=== PATIENT | female | born 1950 | race Caucasian/White ===

== ENCOUNTER 2017-07-04 19:57 | Inpatient (IN) ==
[2017-07-04] MEDS ORDERED: ASPIRIN PO STA (20:16)
[2017-07-04 20:23] LABS: MANUAL DIFF NEEDED? NO
[2017-07-04 20:24] LABS: BASO% 0.5 % (0.0-0.8); EOS# 0.35 X1000 (0.0-0.7); EOS% 4.1 % (0.0-10.0); HEMATOCRIT 33.7 % (37.0-47.0); HEMOGLOBIN 10.9 g/dL (12.0-16.0); IMM GRAN# 0.03 X1000 (0.0-0.04); IMM GRAN% 0.3 % (0.0-0.5); LYMPH# 2.88 X1000 (1.2-3.4); LYMPH% 33.4 % (20.5-51.1); MCH 28.6 PG (27-31); MCHC 32.3 g/dL (33-37); MCV 88.5 FL (81-99); MONO# 0.73 X1000 (0.11-0.59); MONO% 8.5 % (1.7-9.3); MPV 10.7 FL (7.4-10.4); NEUT% 53.2 % (42.2-75.2); PLT 285 X1000 (130-400); RBC 3.81 XMIL (4.2-5.4)
--- NOTE | 2017-07-04 20:29 | EKG Report ---
Test Performed on : 07/04/2017 8:13:40 PM Test Reason : CHEST PAIN Blood Pressure : / mmHG Vent. Rate : 079 BPM Atrial Rate : 079 BPM P-R Int : 172 ms QRS Dur : 090 ms QT Int : 410 ms P-R-T Axes : 056 -35 032 degrees QTc Int : 470 ms Sinus rhythm. with occasional premature ventricular complexes. Left axis deviation Nonspecific ST and T wave abnormality Prolonged QT Abnormal ECG No previous ECGs available Unconfirmed Result
[2017-07-04 21:00] LABS: INR 0.83 (0.86-1.15); PROTIME 12.1 Seconds (12.1-15.5)
[2017-07-04 21:01] LABS: FREE T4 0.84 ng/dL (0.93-1.70); PTT PL 34.8 Seconds (22.6-43.9)
--- NOTE | 2017-07-04 21:02 | Diag Imaging Result Doc PS360 ---
EXAM: CHEST-2 VIEWS INDICATION: CP TECHNIQUE: 2 views COMPARISON: None. FINDINGS: There are a few scattered calcified granulomata bilaterally. The lungs are grossly clear, otherwise. There is no discrete pleural fluid collection or pneumothorax. The cardiomediastinal silhouette and central vasculature are grossly unremarkable. IMPRESSION: No evidence of acute pathology by plain radiograph. Electronically signed by Gio Rolle 07/04/2017 8:59 PM
[2017-07-04 21:31] LABS: SODIUM 139 mmol/L (136-145)
[2017-07-04 21:32] LABS: AGAP 15; BUN 16 mg/dL (8-22); CHLORIDE 99 mmol/L (98-107); COSMO 284; POTASSIUM 3.4 mmol/L (3.5-5.1); TCO2 26 mmol/L (25-35)
[2017-07-04 21:33] LABS: ALBUMIN 3.9 g/dL (3.5-5.0); ALKALINE PHOSPHATASE 138 U/L (32-104); CALCIUM 9.2 mg/dL (8.8-10.2); CK PROFILE 62 U/L (24-173); TOTAL PROTEIN 6.9 g/dL (6.3-8.3)
[2017-07-04 21:35] LABS: GOT 18 U/L (10-30); GPT 10 U/L (10-36)
[2017-07-04 21:42] LABS: MAGNESIUM 1.8 mg/dL (1.5-2.7)
[2017-07-04] MEDS ORDERED: PLAVIX PO ONE (22:34)
[2017-07-04] MEDS ORDERED: CRESTOR PO ONE (22:34)
--- NOTE | 2017-07-04 22:59 | EKG Report ---
Test Performed on : 07/04/2017 10:24:01 PM Test Reason : second set Blood Pressure : / mmHG Vent. Rate : 080 BPM Atrial Rate : 080 BPM P-R Int : 174 ms QRS Dur : 090 ms QT Int : 420 ms P-R-T Axes : 059 -37 023 degrees QTc Int : 484 ms Sinus rhythm. with premature atrial complexes. Left axis deviation Low voltage QRS Abnormal ECG When compared with ECG of 04-JUL-2017 20:13, (Unconfirmed) premature ventricular complexes. are no longer present premature atrial complexes. are now present Unconfirmed Result
--- NOTE | 2017-07-04 23:34 | PROVIDER DOCUMENTATION ---
This chart was entered by Lynn Rodrigez Scribe, acting as scribe for Darion Jacobson DO. HPI-Chest Pain - General Chief Complaint: Chest Pain Stated Complaint: PRESSURE IN CHEST/HEART PT Time Seen by Provider: 07/04/17 20:18 Source: patient Allergies/Adverse Reactions: Patient Allergies Allergy/AdvReac Type Severity Reaction Status Date / Time Penicillins Allergy RASH Verified 07/04/17 20:18 morphine AdvReac NAUSEA Verified 07/04/17 20:18 Home Medications: Home Medication List Medication Instructions Recorded Confirmed Last Taken Type Clopidogrel Bisulfate [Plavix] 75 mg PO DAILY 07/04/17 07/04/17 Unknown History Duloxetine [Cymbalta] 60 mg PO DAILY 07/04/17 07/04/17 Unknown History Duloxetine [Cymbalta] 90 mg PO DAILY 07/04/17 07/04/17 Unknown History ENALApril [Vasotec] 20 mg PO DAILY 07/04/17 07/04/17 Unknown History Ezetimibe [Zetia] 10 mg PO 07/04/17 Unknown History Fluticasone 50 Mcg Nasal [place] 1 spray MARGARET DAILY 07/04/17 07/04/17 Unknown History [Flonase] Gabapentin 300 mg PO TID 07/04/17 07/04/17 Unknown History Hydrochlorothiazide 50 mg PO 07/04/17 Unknown History Isosorbide Mononitrate E.r. [Imdur] 30 mg PO DAILY 07/04/17 07/04/17 Unknown History Metformin E.r. [Glucophage Xr] 500 mg PO BID CC 07/04/17 07/04/17 Unknown History Montelukast Sodium [Singulair] 10 mg PO 07/04/17 Unknown History ROSUVAstatin [Crestor] 10 mg PO DAILY 07/04/17 07/04/17 Unknown History Ranolazine [Ranexa] 500 mg PO 07/04/17 Unknown History Trazodone [Desyrel] 150 mg PO QHS 07/04/17 07/04/17 Unknown History - History of Present Illness-CP Nature of Presenting Problem: pt complains of substernal chest pain no radiation onset 1900 states 5/10 pain, also complains of mild shortness of breath, cardiac hx 2 prior [place], HTN, CAD, DM Location: reports: substernal Chest Pain Radiation: reports: no radiation Quality of Pain: reports: pressure Severity in ED: moderate Onset/Duration: 1-3 hours ago (1900) Timing: still present Context/Activities at Onset: reports: none Modifying Factors: improves with: nothing Associated Symptoms: reports: shortness of breath Nitro Today/Relief: no nitro taken today Aspirin Treatment Today: no aspirin today (states unable to take asa) Prior Chest Pain/Cardiac Workup: reports: heart attack (x2) Similar Symptoms Previously?: Yes Recently Seen Here or By Another Healthcare Provider: No Review of Systems - Adult - REVIEW OF SYSTEMS - ADULT Constitutional: denies: chills, fever Eyes: denies: blurred vision, double vision Ears, Nose, Mouth & Throat: reports: no symptoms reported Cardiovascular: reports: chest pain. denies: edema, palpitations, syncope Respiratory: reports: dyspnea on exertion, shortness of breath. denies: cough Gastrointestinal: reports: nausea. denies: abdominal pain, vomiting Genitourinary: reports: no symptoms reported Musculoskeletal: denies: back pain, neck pain Integumentary: reports: no symptoms reported Neurological: denies: dizziness/vertigo, headache/migraines, syncope Psychiatric: reports: no symptoms reported Endocrine: reports: no symptoms reported Hematologic/Lymphatic: reports: no symptoms reported Allergic/Immunologic: reports: no symptoms reported All Other Systems: Reviewed and Negative Past History - Adult - PAST MEDICAL HISTORY-ADULT Review of Records: reports: Old Records Reviewed, Nursing Assessment Review, Medications Reviewed, Social history reviewed & non-contributory. Major Childhood Illnesses: reports: denies history Cardiovascular: reports: cardiac disease, CAD, HTN, [place] Respiratory: reports: denies history Gastrointestinal: reports: denies history Obstetrical/Gynecological: reports: denies history Genitourinary: reports: denies history Musculoskeletal: reports: denies history Neurological: reports: denies history Endocrine/Immune: reports: denies history, Diabetes Other Conditions: reports: denies history - IMMUNIZATION STATUS Childhood Immunizations: See Nurse Assessment Flu Vaccine: See Nurse Assessment - FAMILY HISTORY Family History: reviewed, not pertinent Physical Exam-General - PHYSICAL EXAM-ADULT Initial Vital Signs Reviewed: Yes - CONSTITUTIONAL General Appearance: appears well, alert, no apparent distress - EYES Eyes: PERRL/EOMI - HEAD, EARS, NOSE, MOUTH & THROAT HENMT: normocephalic/atraumatic, moist mucous membranes, normal ENT inspection, TMs normal, pharynx normal - NECK Neck: non-tender, full range of motion, supple, normal inspection - RESPIRATORY Respiratory: chest non-tender, lungs clear, normal breath sounds, no pleuratic chest pain, no respiratory distress, no accessory muscle use - CARDIOVASCULAR Cardiovascular: normal peripheral pulses, regular rate, rhythm, no edema - GASTROINTESTINAL (ABDOMEN) Abdominal Exam: normal bowel sounds, non tender, soft - LYMPHATIC Lymphatic: no adenopathy - MUSCULOSKELETAL Back Exam: normal inspection, no CVA tenderness, no vertebral tenderness Extremity: normal range of motion, non-tender, normal gait, normal inspection, no pedal edema, no calf tenderness, normal capillary refill - SKIN Integumentary: normal color, normal turgor, warm/dry - NEUROLOGIC Neurologic: grossly normal - PSYCHIATRIC Psych/Mental Status: normal mood/affect Progress - PLAN OF CARE/RESULTS Progress/Plan/Lab Results: Vital Signs - 8 hr 07/04/17 20:05 07/04/17 20:19 07/04/17 21:10 Temperature 98.5 F Pulse Rate 60 65 77 Respiratory Rate 18 14 20 Blood Pressure 168/072 123/62 111/73 O2 Sat by Pulse Oximetry 99 98 07/04/17 21:21 07/04/17 21:40 07/04/17 22:14 Temperature Pulse Rate 80 79 78 Respiratory Rate 18 24 22 Blood Pressure 122/63 97/71 103/53 O2 Sat by Pulse Oximetry 98 98 96 07/04/17 22:26 07/04/17 22:54 07/04/17 23:03 Temperature Pulse Rate 84 73 75 Respiratory Rate 14 16 20 Blood Pressure 128/92 112/70 97/50 O2 Sat by Pulse Oximetry 97 98 97 07/04/17 23:21 Temperature Pulse Rate 75 Respiratory Rate 19 Blood Pressure 89/48 O2 Sat by Pulse Oximetry 98 Laboratory Results - last 24 hr 07/04/17 07/04/17 07/04/17 20:09 20:09 20:09 WBC RBC Hgb Hct MCV MCH MCHC RDW Std Deviation Plt Count MPV Immature Gran % (Auto) Neut % (Auto) Lymph % (Auto) [place] % (Auto) Eos % (Auto) Baso % (Auto) Immature Gran # (Auto) Neut # (Auto) Lymph # (Auto) [place] # (Auto) Eos # (Auto) Baso # (Auto) PT INR APTT (Factor Assay) D-Dimer Sodium 139 Potassium 3.4 L Chloride 99 Carbon Dioxide 26 Anion Gap 15 BUN 16 Creatinine 1.2 H BUN/Creatinine Ratio 13 Glucose 193 H POC Glucose Calculated Osmolality 284 Calcium 9.2 Phosphorus Magnesium 1.8 Total Bilirubin 0.20 AST 18 ALT 10 Alkaline Phosphatase 138 H Creatine Kinase 62 Troponin T < 0.010 Gdo-Q-Ivspzwfluls Pept 49 Total Protein 6.9 Albumin 3.9 Globulin 3.0 Albumin/Globulin Ratio 1.0 TSH Free T4 07/04/17 07/04/17 07/04/17 20:09 20:09 20:09 WBC 8.63 RBC 3.81 L Hgb 10.9 L Hct 33.7 L MCV 88.5 MCH 28.6 MCHC 32.3 L RDW Std Deviation 14.5 Plt Count 285 MPV 10.7 H Immature Gran % (Auto) 0.3 Neut % (Auto) 53.2 Lymph % (Auto) 33.4 [place] % (Auto) 8.5 Eos % (Auto) 4.1 Baso % (Auto) 0.5 Immature Gran # (Auto) 0.03 Neut # (Auto) 4.60 Lymph # (Auto) 2.88 [place] # (Auto) 0.73 H Eos # (Auto) 0.35 Baso # (Auto) 0.04 PT 12.1 INR 0.83 L APTT (Factor Assay) 34.8 D-Dimer 0.38 Sodium Potassium Chloride Carbon Dioxide Anion Gap BUN Creatinine BUN/Creatinine Ratio Glucose POC Glucose Calculated Osmolality Calcium Phosphorus 3.8 Magnesium Total Bilirubin AST ALT Alkaline Phosphatase Creatine Kinase Troponin T Nvy-N-Epyozkoffcw Pept Total Protein Albumin Globulin Albumin/Globulin Ratio TSH Free T4 07/04/17 07/04/17 07/04/17 20:09 21:06 22:30 WBC RBC Hgb Hct MCV MCH MCHC RDW Std Deviation Plt Count MPV Immature Gran % (Auto) Neut % (Auto) Lymph % (Auto) [place] % (Auto) Eos % (Auto) Baso % (Auto) Immature Gran # (Auto) Neut # (Auto) Lymph # (Auto) [place] # (Auto) Eos # (Auto) Baso # (Auto) PT INR APTT (Factor Assay) D-Dimer Sodium Potassium Chloride Carbon Dioxide Anion Gap BUN Creatinine BUN/Creatinine Ratio Glucose POC Glucose 144 H Calculated Osmolality Calcium Phosphorus Magnesium Total Bilirubin AST ALT Alkaline Phosphatase Creatine Kinase 65 Troponin T Eml-I-Bccqrqfzrjf Pept Total Protein Albumin Globulin Albumin/Globulin Ratio TSH 5.67 H Free T4 0.84 L 07/04/17 22:30 WBC RBC Hgb Hct MCV MCH MCHC RDW Std Deviation Plt Count MPV Immature Gran % (Auto) Neut % (Auto) Lymph % (Auto) [place] % (Auto) Eos % (Auto) Baso % (Auto) Immature Gran # (Auto) Neut # (Auto) Lymph # (Auto) [place] # (Auto) Eos # (Auto) Baso # (Auto) PT INR APTT (Factor Assay) D-Dimer Sodium Potassium Chloride Carbon Dioxide Anion Gap BUN Creatinine BUN/Creatinine Ratio Glucose POC Glucose Calculated Osmolality Calcium Phosphorus Magnesium Total Bilirubin AST ALT Alkaline Phosphatase Creatine Kinase Troponin T < 0.010 Jfj-J-Qqohffrqdjd Pept Total Protein Albumin Globulin Albumin/Globulin Ratio TSH Free T4 Orders Category Date Time Status Admit - [facility] Routine AdmDCTranf 07/04/17 22:09 Ordered Cardiac Monitoring DIRECTED Care 07/04/17 20:16 Active Oxygen Therapy- ED Nursing DIRECTED Care 07/04/17 20:16 Active Saline Loc NOW Care 07/04/17 20:16 Active 2 GM SODIUM Diet Diet 07/04/17 22:24 Active Diabetic Diet Diet 07/04/17 22:24 Active Heart Healthy Diet Diet 07/04/17 22:23 Completed CHEST-2 VIEWS [RAD] Stat Exams 07/04/17 20:16 Completed CBC WITH ELECTRONIC DIFF [HEME] Stat Lab 07/04/17 20:09 Completed CK PROFILE [SP CHEM] Stat Lab 07/04/17 20:09 Completed CK PROFILE [SP CHEM] Stat Lab 07/04/17 22:30 Completed COMPREHENSIVE METABOLIC PANEL [CHEM] Stat Lab 07/04/17 20:09 [address] D-DIMER [address] [COAG] Stat Lab 07/04/17 20:09 Completed FREE T4 Stat Lab 07/04/17 20:09 Completed MAGNESIUM [CHEM] Stat Lab 07/04/17 20:09 Completed PRO B-NATRIURETIC PEPTIDE Stat Lab 07/04/17 20:09 Completed [address]IME WITH INR PL [COAG] Stat Lab 07/04/17 20:[address] [COAG] Stat Lab 07/04/17 20:09 Completed TROPONIN T Stat Lab 07/04/17 20:09 Completed TROPONIN T Stat Lab 07/04/17 22:30 Completed TROPONIN T Timed Lab 07/05/17 07:00 Ordered TSH Stat Lab 07/04/17 20:09 Completed phos [PHOSPHORUS] [CHEM] Stat Lab 07/04/17 20:09 Completed Aspirin Med 07/04/17 20:16 Discontinued 325 mg PO STAT STA Clopidogrel [Plavix] Med 07/04/17 22:34 Discontinued 75 mg PO NOW ONE ROSUVAstatin [Crestor] Med 07/04/17 22:34 Discontinued 10 mg PO NOW ONE EKG [EKG] Stat Ther 07/04/17 20:16 Draft EKG [EKG] Stat Ther 07/04/17 22:19 Draft Transfer/Admit Order [TRANSFER] Routine Transfer 07/04/17 22:27 Ordered SPOKE WITH HE HAS ACCEPTED THE ADMISSION Result Diagrams: 07/04/17 20:09 07/04/17 20:09 - EKG 1 Time of EKG reading by physician:: 20:13 EKG Read and Signed by:: Moshe Banda EKG Interpretation (*Must complete 3 of following elements*): Abnormal Rate: 79 [place]: left QRS: PVC's ST Wave: non-specific ST changes Comments: sinus rythm with occasional PVCs, LAD, non specific st-t wave abnormalities 2 Time of EKG reading by physician:: 22:24 EKG Read and Signed by:: Moshe Banda EKG Interpretation (*Must complete 3 of following elements*): Abnormal Rate: 80 Rhythm: sinus with PAC [place]: left RI Interval: normal ST Wave: normal Comments: lad, low voltage qrs Departure - Departure Date of Disposition Decision: 07/04/17 Time of Disposition Decision: 23:00 DIAGNOSIS: Chest pain Qualifiers: Chest pain type: chest pain due to myocardial ischemia Ischemic chest pain type : unstable angina pectoris Qualified Code(s): I20.0 - Unstable angina Disposition: ADMITTED INPATIENT 09 Certified Medical Emergency: Emergent Condition: Critical - Critical Care Note This patient required my direct & personal management of CC.: No Attestation - Physician/ MARCIA Attestation Patient care was provided by Advanced Practice Provider:: No The physician spent face to face time with patient:: Yes Advanced Practice Provider documentation review:: Supervising physician onsite and consulted in the evaluation and care of this patient. The physician did have a face to face encounter with the patient. This chart was documented by the indicated scribe, (Lynn Rodrigez Scribe) and accurately reflects the services I performed and decisions made by me, Darion Jacobson DO, as attested by the provider's signature.
[2017-07-05] MEDS ORDERED: NEURONTIN PO ONE (01:14)
[2017-07-05] MEDS ORDERED: TYLENOL PO PRN (01:16)
[2017-07-05] MEDS ORDERED: CRESTOR PO ONE ×2 (02:30)
[2017-07-05 07:28] VITALS: BP 107/74
[2017-07-05] MEDS: NEURONTIN PO SCH ×2 (08:24→12:15)
--- NOTE | 2017-07-05 16:58 | HISTORY AND PHYSICAL ---
CHIEF COMPLAINT: Chest pressure. HISTORY OF PRESENT ILLNESS: This is a 66-year-old female with a history of CAD having 2 MIs in the past, hypertension and diabetes mellitus. She presented to the emergency room complaining of substernal chest pain that started a few hours prior to coming to the emergency room. She rated it as a 5/10. She had no radiation, no exacerbating or alleviating symptoms. She did have a shortness of breath to accompany. She has had an CO in the past and stated that this does not feel like that type of pain. EKG on arrival revealed a sinus rhythm with occasional PVCs, a rate of [address]-T wave abnormalities. Repeat EKG about 2 hours later revealed sinus rhythm with PACs rate of 80. Troponins were negative on multiple occasions. She was given aspirin, Plavix and Crestor in the emergency room and admitted for further evaluation and treatment. PAST MEDICAL HISTORY: CAD status post CO x2, hypertension, diabetes mellitus, high cholesterol, depression, history kidney stones. PAST SURGICAL HISTORY: Hysterectomy, tubal ligation, right knee surgery and left total knee. ALLERGIES: Penicillin which causes a rash and morphine which causes nausea. HOME MEDICATIONS: Zetia 10 mg at bedtime, Singulair 10 mg daily, Ranexa 500 p.o. b.i.d., Cymbalta 90 mg p.o. daily, Crestor 10 p.o. daily, Plavix 75 mg p.o. daily, Imdur 30 mg p.o. daily, Glucophage XR 500 mg p.o. b.i.d., gabapentin 300 mg p.o. t.i.d., trazodone 150 mg p.o. at bedtime, hydrochlorothiazide 50 mg p.o. daily and Vasotec 10 mg p.o. daily. REVIEW OF SYSTEMS: A 14 point review of systems is discussed with patient with pertinent positives stated in HPI. She denied dizziness, syncope, palpitations, shortness of breath, PND, orthopnea, cough, fever, chills, recent weight loss or weight gain, any nausea, vomiting, diarrhea, constipation, black or bloody vomitus, black or bloody stools, any hematuria, dysuria, frequency, urgency. PHYSICAL EXAMINATION: GENERAL: This is a 66-year-old female who is sitting in the bed in no distress. VITAL SIGNS: Blood pressure is 107/74 with a heart rate of 64, respirations are 18, temperature is 98.4 degrees oral with room air saturations of 97-98%. HEENT: Head is normocephalic, atraumatic. Pupils equal, round, react to light. EOMs are intact. Sclerae anicteric. Mucous membranes are moist. NECK: Supple with trachea midline. CARDIOVASCULAR: Regular rate and rhythm. S1 and S2 appreciated. PULMONARY: Breath sounds are clear with no increased work of breathing noted. GASTROINTESTINAL: Abdomen soft, nontender, nondistended. Bowel sounds in all 4 quadrants. BACK: No CVAT. No spine tenderness. MUSCULOSKELETAL: Good range of motion of joints. SKIN: Warm and dry with no rashes or lesions noted. EXTREMITIES: No clubbing, cyanosis, or edema. Calves are nontender. Pulses are palpable x4. NEUROLOGIC: She is alert and oriented x3. DIAGNOSTICS: WBC is 8.6 with hemoglobin 10.9, hematocrit 33.7 and platelets of 285,000. D-dimer is 0.38. Sodium is 139, potassium 3.4, BUN 16, creatinine 1.2 with a glucose of 193. Troponins are negative on multiple occasions. TSH is 5.67 with a free T4 of 0.84. Chest x-ray revealed no evidence of acute pathology. Lungs are grossly clear. No discrete pleural fluid collection or pneumothorax, cardiomediastinal silhouette and central vasculature are grossly unremarkable. ASSESSMENT: 1. Chest pain. 2. Diabetes mellitus. 3. Hypertension. 4. High cholesterol. 5. Hypothyroid. New diagnoses. PLAN: She will be admitted to the hospital. She will be placed on telemetry. Will continue to trend cardiac enzymes. She stated that she had a nuclear stress test performed within the last month per Dr. Joya in [place] which was negative. Her troponins are negative so will do no further testing as she has an appointment with Dr. Joya in the morning. Will identify her home medications and continue as appropriate. She will need levothyroxine started and thyroid levels monitored, as she has an appointment Dr. Joya in the morning she does wish that he start this medication. Further treatments pending hospital course. Dictated by LIVIA Olmedo for Andrew Ace MD cc: LIVIA Olmedo, MD
--- NOTE | 2017-07-05 21:48 | PROGRESS NOTE ---
DATE: 07/05/2017 SUBJECTIVE: Patient notes that she came to the ER because she was having some irregular heart rate. States that she just recently underwent a stress test, echo and CT of her heart by Dr. Joya 3 weeks ago that were all reported as negative. She has not had a left heart catheterization recently. Patient seen and examined by myself. Full note dictated by the nurse practitioner. OBJECTIVE: General: Patient on physical currently is awake, alert. She is in no distress. She is feeling better. Her symptoms are improved. She actually has an appointment Dr. Joya in the a.m. Chest: Clear. Abdomen: Soft. CARDIOVASCULAR: Regular rate and rhythm. No murmurs. ASSESSMENT: Therefore, we will discharge her home. She follow up outpatient with Dr. Joya as she certainly may need a Holter monitor at that point. She does have a very strong family history of coronary artery disease, although she has recently had negative tests for her. cc: Andrew Ace MD
--- NOTE | 2017-07-06 12:30 | DISCHARGE SUMMARY ---
ADMISSION DATE: 07/04/2017 DISCHARGE DATE: 07/05/2017 DIAGNOSES: 1. Chest pain, resolved. 2. Diabetes type 2. 3. Hypertension. 4. High cholesterol. 5. Hypothyroid. 6. Coronary artery disease status post myocardial infarction. DIAGNOSTICS: Chest x-ray revealed no acute abnormalities. Troponins were negative on multiple occasions. HOSPITAL COURSE: Ms. Villafuerte presented to the emergency room complaining of substernal chest pain that did not radiate and had no accompanying symptoms. It lasted about 4 hours. This did not feel like her prior [place] chest discomfort. Troponins were negative. EKGs had no ST-T changes. She was given aspirin and Plavix in the emergency room. She was placed on telemetry. She was in sinus rhythm with occasional PACs. We did discuss with the patient the need for Synthroid. She does wish to have this started by her physicians. She was given copies of her labs to take to her appointment tomorrow. PHYSICAL EXAMINATION: Cardiovascular: Regular rate and rhythm. S1 and S2 appreciated. Pulmonary: Breath sounds are clear. No increased work of breathing noted. Gastrointestinal: Abdomen is soft, nontender, nondistended with bowel sounds in all 4 quadrants. Extremities: No clubbing, cyanosis, or edema. Calves are nontender. Pulses are palpable x4. Neurologic: She is alert and oriented x3 with cranial nerves 2-12 grossly intact. DISCHARGE MEDICATIONS: Zetia 10 mg p.o. at bedtime, Singulair 10 mg p.o. daily, Ranexa 500 p.o. b.i.d., Cymbalta 90 p.o. daily, Crestor 10 daily, Plavix 75 mg daily, Imdur 30 mg daily, Glucophage XR 500 b.i.d., gabapentin 300 p.o. t.i.d., trazodone 150 at bedtime, hydrochlorothiazide 50 daily, and Vasotec 10 daily. FOLLOWUP: She is to keep her appointment with Dr. Joya tomorrow. DISPOSITION: She is being discharged home in stable condition with family members. TIME SPENT: This is a greater than 30 minute discharge. Dictated by LIVIA Olmedo for Andrew Ace MD cc: LIVIA Olmedo MD
== END 2017-07-05 13:00 | disposition home or self-care (01) ==
LOC: P.ED 19:57 → SUATTDRO 23:25 → P.MEDSURG 23:25
PROVIDERS: ATTEND Family Medicine